=== PATIENT | male | born 2005 | race African-American/Black ===

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

== ENCOUNTER 2023-12-25 22:07 | Emergency (ER) | payer OTHER ==
[~2023-12-25] VITALS: Ht 180.3 cm; Wt 81.6 kg
[2023-12-25 22:21] VITALS: BP 138/80
[2023-12-25] MEDS ORDERED: BACTRIM DS1 TAB PO (22:32)
[2023-12-25 22:53] VITALS: BP 138/80
== END 2023-12-25 22:53 | disposition home or self-care (01) | DRG 603 ==
LOC: ED 22:07
DX: L03.211 Cellulitis of face (principal)